=== PATIENT | female | born 1995 | race Caucasian/White ===

== ENCOUNTER → 2017-08-23 | Outpatient (CLI) | payer OTHER ==
--- NOTE | 2017-08-23 17:05 | REP ---
Maxillofacial CT study without contrast: History: Deviated nasal septum. No comparison imaging. Findings: There is a 13 mm mucous retention cyst in the floor of the left maxillary sinus. There are two tiny mucous retention cysts on the right maxillary sinus patino. Maxillary sinuses are otherwise clear. Mastoid aeration is normal and symmetric. Sphenoid and ethmoid aeration is normal. The frontal sinuses are clear. Bony nasal septum deviates somewhat to the right with a rightward beak. There are aerated tania bullosa in the middle turbinates bilaterally. The ostiomeatal complexes are patent. No intraorbital or intracranial abnormality is seen. Impression: Rightward deviated nasal septum with a septal beak. Bilateral middle turbinate aerated tania bullosa. Signed by Jaxon Min MD 08/23/2017 09:37 P
== END ==
LOC: M RAD 15:46
PROVIDERS: ATTEND Otolaryngology
DX: J34.2 Deviated nasal septum (principal); J34.89 Other specified disorders of nose and nasal sinuses

== ENCOUNTER 2018-04-01 08:23 | Day surgery (SDC) | payer OTHER ==
[2018-04-01] MEDS ORDERED: fentaNYL 250 MCG/5 ML INJECTION (J3010) As Ordered (09:02)
[2018-04-01] MEDS ORDERED: PROPOFOL 200 MG/20 ML VIAL As Ordered (09:03)
[2018-04-01] MEDS ORDERED: MIDAZOLAM INJ 2 MG/2 ML VIAL (J2250) As Ordered (09:03)
[2018-04-01] MEDS: LR 1,000 ML IV (09:10)
[2018-04-01 09:20] LABS: CONTROL LINE UCG INT CTR LINE PRESENT; URINE PREG TEST NEGATIVE (NEGATIVE)
[2018-04-01] MEDS ORDERED: dexameTHASONE 4 MG/ML 1ML VIAL (J1100) As Ordered ×2 (09:52)
[2018-04-01] MEDS ORDERED: ONDANSETRON 4MG/2ML VIAL (J2405) As Ordered (09:52)
[2018-04-01] MEDS ORDERED: LIDOCAINE 2% INJ 100 MG/5 ML SDV (FOR ANES.) As Ordered (10:04)
[2018-04-01] MEDS: SODIUM CHLORIDE 0.9% NASAL GEL 15GM (AYR) As Ordered (10:14)
[2018-04-01] MEDS: OXYMETAZOLINE NASAL SPRAY (AFRIN) As Ordered (10:14)
[2018-04-01] MEDS: METHYLENE BLUE 0.5% (5MG/ML) 10 ML AMP (PROVAYBLUE)(Q9968 PER 1MG) As Ordered (10:15)
[2018-04-01] MEDS: LIDOCAINE W/EPINEPHRINE 1% 20ML VIAL As Ordered (10:47)
[2018-04-01] MEDS ORDERED: fentaNYL 100 MCG/2 ML INJECTION (J3010) As Ordered (11:27)
[2018-04-01] MEDS ORDERED: PERCOCET 5MG/325MG TAB As Ordered (11:27)
[2018-04-01] MEDS: PERCOCET 5MG/325MG TAB PO (11:30)
[2018-04-01] MEDS ORDERED: ONDANSETRON 4MG/2ML VIAL (J2405) IV (11:30)
[2018-04-01] MEDS ORDERED: LR 1,000 ML IV (11:30)
[2018-04-01] MEDS: fentaNYL 100 MCG/2 ML INJECTION (J3010) IV ×3 (11:30→11:40)
[2018-04-01] MEDS ORDERED: NEOSTIGMINE 10 MG/10 ML VIAL (J2710) As Ordered (12:09)
[2018-04-01] MEDS ORDERED: GLYCOPYRROLATE INJ 0.2 MG/ML 2 ML VIAL As Ordered (12:10)
== END 2018-04-01 13:40 | disposition home or self-care (01) ==
LOC: M SDC 08:23
DX: J34.2 Deviated nasal septum (principal); J34.3 Hypertrophy of nasal turbinates
CPT/HCPCS: 30520